=== PATIENT | male | born 1980 | race Caucasian/White ===

== ENCOUNTER 2018-09-23 00:05 | Emergency (ER) | payer OTHER ==
[2018-09-23 01:05] LABS: Protime INR 1.06
[2018-09-23 01:06] LABS: ALT/SGPT 36 U/L (12-78); AST/SGOT 19 U/L (15-37); Albumin 4.2 g/dL (3.4-5.0); Alkaline Phosphatase 101 U/L (45-117); BUN Blood Urea Nitrogen 12 mg/dL (7-18); Bicarbonate 29 mmol/L (21-32); Bilirubin Direct 0.1 mg/dL (0-0.2); Bilirubin Total 0.4 mg/dL (0.2-1.0); Glucose Level 109 mg/dL (74-106); Magnesium 2.1 mg/dL (1.8-2.4); NT PRO-BNP 17 pg/mL (<125); Potassium 3.4 mmol/L (3.5-5.1); Protein, Total 7.3 g/dL (6.4-8.2); Sodium Level 142 mmol/L (136-145); Troponin (Emerg Dept Use Only) < 0.02 ng/mL (0.0-0.045)
[2018-09-23] MEDS ORDERED: KETOROLAC 30 MG/ML INJ ONE (03:03)
--- NOTE | 2018-09-23 03:56 | ER ---
Nurse's Notes [facility] Name: Gabe Steiner Age: 37 yrs Sex: Male : 1980 Arrival Date: 09/23/2018 Time: 00:09 Bed 5 Private MD: Diagnosis: Chest pain, unspecified Presentation: 09/23 00:20 Presenting complaint: Patient states: Sudden onset of right anterior chest pain that lp1 began 2 hours ago, dull pain with some sweating; denies any shortness of breath; States feeling anxious during triage. Transition of care: patient was not received from another setting of care. Onset of symptoms was September 22, 2018 at 22:00. Risk Assessment: Do you want to hurt yourself or someone else? Patient reports no desire to harm self or others. Initial Sepsis Screen: Does the patient meet any 2 criteria? No. Patient's initial sepsis screen is negative. Does the patient have a suspected source of infection? No. Patient's initial sepsis screen is negative. Care prior to arrival: None. 00:20 Method Of Arrival: Wheelchair lp1 00:20 Acuity: FUENTES 3 lp1 Triage Assessment: 00:24 General: Appears in no apparent distress. Behavior is appropriate for age. Pain: lp1 Complains of pain in anterior aspect of right upper chest Pain currently is 4 out of 10 on a pain scale. Cardiovascular: Patient's skin is warm and dry. Historical: - Allergies: 00:23 No Known Allergies; lp1 - Home Meds: 00:23 None [Active]; lp1 - PMHx: 00:23 Heart Murmur; lp1 - PSHx: 00:23 None; lp1 - Immunization history:: Adult Immunizations up to date. - Social history:: Smoking status: Patient/guardian denies using tobacco. - Ebola Screening: : No symptoms or risks identified at this time. Screenin:23 Abuse screen: Denies threats or abuse. Denies injuries from another. Nutritional lp1 screening: No deficits noted. Tuberculosis screening: No symptoms or risk factors identified. Fall Risk None identified. Assessment: 00:37 General: Appears in no apparent distress. Behavior is calm, cooperative. Pain: Denies ed1 pain. Neuro: Level of Consciousness is awake, alert, obeys commands, Oriented to person, place, time, situation. Cardiovascular: Reports chest pain prior to arrival Denies chest pain, Heart tones S1 S2 present Capillary refill < 3 seconds in bilateral fingers. Respiratory: Airway is patent Respiratory effort is even, unlabored, Respiratory pattern is regular, symmetrical, Breath sounds are clear bilaterally. GI: Patient currently denies diarrhea, nausea, vomiting. : No signs and/or symptoms were reported regarding the genitourinary system. EENT: No signs and/or symptoms were reported regarding the EENT system. Derm: Skin is intact, is healthy with good turgor, Skin is dry, Skin is normal, Skin temperature is warm. Musculoskeletal: Circulation, motion, and sensation intact. 00:56 Reassessment: Patient appears in no apparent distress at this time. Patient and/or ed1 family updated on plan of care and expected duration. Pain level reassessed. Patient is alert, oriented x 3, equal unlabored respirations, skin warm/dry/pink. Patient denies pain at this time. 01:30 Reassessment: Patient appears in no apparent distress at this time. Patient and/or ed1 family updated on plan of care and expected duration. Pain level reassessed. Patient is alert, oriented x 3, equal unlabored respirations, skin warm/dry/pink. Patient denies pain at this time. 02:27 Reassessment: Patient appears in no apparent distress at this time. Patient and/or ed1 family updated on plan of care and expected duration. Pain level reassessed. Patient is alert, oriented x 3, equal unlabored respirations, skin warm/dry/pink. Pt states "I had felt the pain about 45 minutes ago but it is gone now." Patient denies pain at this time. 03:26 Reassessment: Patient appears in no apparent distress at this time. Patient and/or ed1 family updated on plan of care and expected duration. Pain level reassessed. Patient is alert, oriented x 3, equal unlabored respirations, skin warm/dry/pink. Pt states "I can't really tell if that medicine worked or not because the pain just comes and goes.". 04:06 Reassessment: Patient appears in no apparent distress at this time. No changes from ed1 previously documented assessment. Patient and/or family updated on plan of care and expected duration. Pain level reassessed. Patient is alert, oriented x 3, equal unlabored respirations, skin warm/dry/pink. Vital Signs: 00:22 BP 165 / 99; Pulse 71; Resp 18; Temp 97.8(O); Pulse Ox 99% on R/A; Weight 115.67 kg; lp1 Height 6 ft. 4 in. (193.04 cm); Pain 4/10; 00:56 BP 151 / 100; Pulse 69; Resp 14; Pulse Ox 99% on R/A; Pain 0/10; ed1 01:30 BP 134 / 92; Pulse 64; Resp 18; Pulse Ox 98% on R/A; Pain 0/10; ed1 02:27 BP 135 / 98; Pulse 69; Resp 15; Pulse Ox 97% on R/A; Pain 0/10; ed1 03:26 BP 128 / 86; Pulse 66; Resp 15; Pulse Ox 98% on R/A; Pain 2/10; ed1 04:06 BP 130 / 99; Pulse 71; Resp 17; Pulse Ox 100% on R/A; Pain 0/10; ed1 00:22 Body Mass Index 31.04 (115.67 kg, 193.04 cm) lp1 ED Course: 00:09 Patient arrived in ED. ds1 00:12 Paul Alvarez MD is Attending Physician. gs 00:22 Triage completed. lp1 00:22 Arm band placed on left wrist. lp1 00:23 Patient has correct armband on for positive identification. Placed in gown. Call light lp1 in reach. compliance monitor on. Pulse ox on. NIBP on. 00:24 Patient maintains SpO2 saturation greater than 95% on room air. lp1 00:25 Kristin Dinero RN is Primary Nurse. ed1 00:37 Initial lab(s) drawn, by me, sent to lab. Inserted saline lock: 20 gauge in right ed1 antecubital area, using aseptic technique. Blood collected. 00:40 X-ray completed. Portable x-ray completed in exam room. Patient tolerated procedure kw well. 00:41 XRAY Chest (1 view) In Process Unspecified. EDMS 04:06 No provider procedures requiring assistance completed. IV discontinued, intact, ed1 bleeding controlled, No redness/swelling at site. Pressure dressing applied. Administered Medications: 02:55 Drug: TORadol 30 mg Route: IVP; Site: right antecubital; ed1 03:28 Follow up: Response: No adverse reaction; No change in condition ed1 Outcome: 03:55 Discharge ordered by . 04:06 Discharged to home ambulatory, with significant other. ed1 04:06 Condition: good 04:06 Discharge instructions given to patient, Instructed on discharge instructions, follow up and referral plans. Demonstrated understanding of instructions, follow-up care. 04:07 Patient left the ED. ed1 Signatures: Dispatcher [employer] EDMS Brianna Damian ds1 Kristin Dinero RN RN ed1 Aleah Kearney Laura, SHEN RN lp1 Paul Alvarez MD MD gs
--- NOTE | 2018-09-23 03:56 | EDPHYS ---
Physician Documentation [facility] Name: Gabe Steiner Age: 37 yrs Sex: Male : 1980 Arrival Date: 09/23/2018 Time: 00:09 Bed 5 Private MD: ED Physician Paul Alvarez HPI: 09/23 03:48 This 37 yrs old Male presents to ER via Wheelchair with complaints of Chest gs Pain. 03:48 The patient or guardian reports chest pain that is located primarily in the anterior gs chest wall, right. The pain does not radiate. Associated signs and symptoms: Pertinent positives: diaphoresis, shortness of breath. The chest pain is described as dull. Duration: The patient or guardian reports multiple episodes, that wax and wane, with no pattern, the episodes last approximately 5 minute(s). Modifying factors: The symptoms are alleviated by nothing. the symptoms are aggravated by movement. Severity of pain: At its worst the pain was moderate in the emergency department the pain has resolved. The patient has experienced similar episodes in the past, a few times. Historical: - Allergies: 00:23 No Known Allergies; lp1 - Home Meds: 00:23 None [Active]; lp1 - PMHx: 00:23 Heart Murmur; lp1 - PSHx: 00:23 None; lp1 - Immunization history:: Adult Immunizations up to date. - Social history:: Smoking status: Patient/guardian denies using tobacco. - Ebola Screening: : No symptoms or risks identified at this time. ROS: 03:48 All other systems are negative. gs Exam: 03:48 Head/Face: Normocephalic, atraumatic. Eyes: Pupils equal round and reactive to light, gs extra-ocular motions intact. Lids and lashes normal. Conjunctiva and sclera are non-icteric and not injected. Cornea within normal limits. Periorbital areas with no swelling, redness, or edema. ENT: Nares patent. No nasal discharge, no septal abnormalities noted. Tympanic membranes are normal and external auditory canals are clear. Oropharynx with no redness, swelling, or masses, exudates, or evidence of obstruction, uvula midline. Mucous membranes moist. Neck: Trachea midline, no thyromegaly or masses palpated, and no cervical lymphadenopathy. Supple, full range of motion without nuchal rigidity, or vertebral point tenderness. No Meningismus. Chest/axilla: Normal chest wall appearance and motion. Nontender with no deformity. No lesions are appreciated. Cardiovascular: Regular rate and rhythm with a normal S1 and S2. No gallops, murmurs, or rubs. Normal PMI, no JVD. No pulse deficits. Respiratory: Lungs have equal breath sounds bilaterally, clear to auscultation and percussion. No rales, rhonchi or wheezes noted. No increased work of breathing, no retractions or nasal flaring. Abdomen/GI: Soft, non-tender, with normal bowel sounds. No distension or tympany. No guarding or rebound. No evidence of tenderness throughout. Back: No spinal tenderness. No costovertebral tenderness. Full range of motion. Skin: Warm, dry with normal turgor. Normal color with no rashes, no lesions, and no evidence of cellulitis. MS/ Extremity: Pulses equal, no cyanosis. Neurovascular intact. Full, normal range of motion. Neuro: Awake and alert, GCS 15, oriented to person, place, time, and situation. Cranial nerves II-XII grossly intact. Motor strength 5/5 in all extremities. Sensory grossly intact. Cerebellar exam normal. Normal gait. 03:48 Constitutional: The patient appears alert, awake. 03:48 ECG was reviewed by the Attending Physician. Vital Signs: 00:22 BP 165 / 99; Pulse 71; Resp 18; Temp 97.8(O); Pulse Ox 99% on R/A; Weight 115.67 kg; lp1 Height 6 ft. 4 in. (193.04 cm); Pain 4/10; 00:56 BP 151 / 100; Pulse 69; Resp 14; Pulse Ox 99% on R/A; Pain 0/10; ed1 01:30 BP 134 / 92; Pulse 64; Resp 18; Pulse Ox 98% on R/A; Pain 0/10; ed1 02:27 BP 135 / 98; Pulse 69; Resp 15; Pulse Ox 97% on R/A; Pain 0/10; ed1 03:26 BP 128 / 86; Pulse 66; Resp 15; Pulse Ox 98% on R/A; Pain 2/10; ed1 04:06 BP 130 / 99; Pulse 71; Resp 17; Pulse Ox 100% on R/A; Pain 0/10; ed1 00:22 Body Mass Index 31.04 (115.67 kg, 193.04 cm) lp1 MDM: 00:23 Patient medically screened. 03:48 Differential diagnosis: coronary artery disease chest wall pain, thoracic aortic gs disection. Data reviewed: vital signs, nurses notes, lab test result(s), EKG, radiologic studies. Counseling: I had a detailed discussion with the patient and/or guardian regarding: the historical points, exam findings, and any diagnostic results supporting the discharge/admit diagnosis, lab results, radiology results, the need for outpatient follow up. Response to treatment: the patient's symptoms have resolved after treatment, and as a result, I will discharge patient. 09/23 00:24 Order name: Basic Metabolic Panel; Complete Time: 02:05 09/23 00:24 Order name: CBC with Diff; Complete Time: 03:48 09/23 00:24 Order name: LFT's; Complete Time: 02:05 09/23 00:24 Order name: Magnesium; Complete Time: 02:05 09/23 00:24 Order name: NT PRO-BNP; Complete Time: 02:05 09/23 00:24 Order name: PT-INR; Complete Time: 02:05 09/23 00:24 Order name: Troponin (emerg Dept Use Only); Complete Time: 02:05 09/23 00:24 Order name: XRAY Chest (1 view) 09/23 00:24 Order name: EKG; Complete Time: 00:25 09/23 00:24 Order name: Cardiac monitoring; Complete Time: 00:25 09/23 00:24 Order name: EKG - Nurse/Tech; Complete Time: 00:56 09/23 00:24 Order name: D-Dimer; Complete Time: 02:05 09/23 02:06 Order name: Troponin (emerg Dept Use Only); Complete Time: 03:48 09/23 00:24 Order name: IV Saline Lock; Complete Time: 00:40 09/23 00:24 Order name: Labs collected and sent; Complete Time: 00:40 09/23 00:24 Order name: O2 Per Protocol; Complete Time: 00:26 09/23 00:24 Order name: O2 Sat Monitoring; Complete Time: 00:26 gs EC:48 Rate is 67 beats/min. Rhythm is regular. FL interval is normal. QRS interval is normal. gs QT interval is normal. No Q waves. T waves are Normal. No ST changes noted. Clinical impression: Normal ECG. Interpreted by me. Administered Medications: 02:55 Drug: TORadol 30 mg Route: IVP; Site: right antecubital; ed1 03:28 Follow up: Response: No adverse reaction; No change in condition ed1 Disposition: 09/23/18 03:55 Discharged to Home. Impression: Chest pain, unspecified. - Condition is Stable. - Discharge Instructions: Nonspecific Chest Pain. - Medication Reconciliation Form, Thank You Letter, Antibiotic Education, Prescription Opioid Use form. - Follow up: Private Physician; When: 2 - 3 days; Reason: Re-evaluation by your physician. Signatures: Dispatcher [employer] Kristin Owens RN RN ed1 Vivian Glover RN RN lp1 Paul Alvarez MD MD Corrections: (The following items were deleted from the chart) 04:07 03:55 09/23/2018 03:55 Discharged to Home. Impression: Chest pain, unspecified. ed1 Condition is Stable. Forms are Medication Reconciliation Form, Thank You Letter, Antibiotic Education, Prescription Opioid Use. Follow up: Private Physician; When: 2 - 3 days; Reason: Re-evaluation by your physician.
--- NOTE | 2018-09-23 08:26 | RAD REPORT ---
EXAM DESCRIPTION: RAD - Chest Single View - 09/23/2018 12:41 am CLINICAL HISTORY: CHEST PAIN Chest pain. COMPARISON: No comparisons FINDINGS: Portable technique limits examination quality. The lungs are grossly clear. The heart is normal in size. No displaced fractures. IMPRESSION: No acute intrathoracic process suspected.
--- NOTE | 2018-09-23 14:01 | EKG ---
Test Date: 2018-09-23 Test Time: 00:39:54 Glass Technician: WOLFT MEASUREMENT RESULTS: Intervals: Rate: 67 VA: 168 QRSD: 96 QT: 420 QTc: 443 Paulina: P: 68 VA: 168 QRS: 53 T: 54 INTERPRETIVE STATEMENTS: Normal sinus rhythm Normal ECG No previous ECG available for comparison Electronically Signed On 09-23-18 13:58:51 PAINT AND TABLE EDGER by Tarun Baker
== END 2018-09-23 04:07 | disposition home or self-care (01) ==
LOC: ER 00:05
DX: R07.9 Chest pain, unspecified (principal)
CPT/HCPCS: 36415; 71045; 80048; 80076; 83735; 83880; 84484; 85025; 85379; 85610; 93005

== ENCOUNTER 2018-10-10 07:27 | Day surgery (SDC) | payer OTHER ==
[2018-10-07 14:33] LABS: Potassium 4.2 mmol/L (3.5-5.1)
[2018-10-07 14:42] LABS: Absolute Monocytes 0.3 K/uL (0.1-1.3); Absolute Neutrophil 3.4 K/uL (1.8-8.0); Basophils % 0.2 % (0-1.3); Eosinophils % 0.9 % (0-4.4); Hematocrit 41.3 % (39.6-49.0); Lymphocytes % 20.9 % (15.3-44.8); MPV 11.2 fL (7.6-11.3); Monocytes % 5.8 % (3.3-12.3); RBC Red Blood Cell Count 4.83 M/uL (4.33-5.43)
[2018-10-10] MEDS ORDERED: CEFAZOLIN 1GM (PREMIX IV) 1 GM/50 ML BAG ONE (08:00)
[2018-10-10] MEDS ORDERED: Ringers Lactate 1,000 ML IV ONE (08:00)
[2018-10-10] MEDS ORDERED: PROPOFOL 200 MG/20 ML VIAL IV ONE (08:07)
[2018-10-10] MEDS ORDERED: MIDAZOLAM HCL 2 MG/2 ML INJ ONE (08:07)
[2018-10-10] MEDS ORDERED: FENTANYL CITR 100 MCG/2 ML ONE (08:07)
[2018-10-10] MEDS ORDERED: ONDANSETRON 4 MG/2 ML VIAL ONE (08:08)
[2018-10-10] MEDS ORDERED: LIDOCAINE 2% MPF 5 ML VIAL ONE (08:08)
[2018-10-10] MEDS ORDERED: BUPIVACAINE 0.5% PF 10 ML VIAL ONE (08:22)
--- NOTE | 2018-10-10 08:55 | P.BOP ---
Preoperative diagnosis: infected back subcutaneous mass with abscess Postoperative diagnosis: same Primary procedure: Excisional biopsy of infected back subcutaneous mass with abscess drainage Secondary procedure: 4.5 x 4 x 2 cm Supervisor Porcelain Department: Geno Maldonado) Estimated blood loss: <10cc Specimen: mass, pus culture Findings: mass with abscess Anesthesia: General Complications: None Drain(s): Other Transferred to: Recovery Room
[2018-10-10] MEDS ORDERED: CODEINE 30MG/APAP 300MG TAB ONE (10:27)
--- NOTE | 2018-10-10 20:58 | OP ---
Date of Procedure: 10/10/2018 Surgeon: David Nix MD Shovel Logger: ZIA Mahajan. Preoperative Diagnosis: Infected back subcutaneous mass with abscess. Postoperative Diagnosis: Infected back subcutaneous mass with abscess. Procedure: Excisional biopsy of infected back subcutaneous mass with drainage of an abscess, 4.5 x 4 x 2 cm. Estimated Blood Loss: Less than 10 cc. Specimen: Mass and pus culture. Findings: The patient has an infected mass, foul smelling, going all the way down to muscle, some fa scia also was involved with it. The muscle does not seem to be penetrated. The fascia was removed w ith the specimen. Culture was obtained. The abscess with loculations were identified and opened. Anesthesia: General plus local. Indications: This is the case of a 37-year-old patient, comes to us with infected back mass, redness , increased temperature. He has been on antibiotics for a few days, but it is not improving. Benefi ts and risks of excisional biopsy of infected mass with drainage of an abscess fully explained to the patient, which include but are not limited to infection, bleeding, damage to adjacent structures, an esthesia complication, nonhealing wound, UT, and even . He also understands this might not reli mitzi any symptoms. He might need more than one surgical intervention. He understands he may require wound care. He understood, signed a consent. The area of concern was marked by me and the patient i n the holding room. Description Of Procedure: The patient was brought to the operating room, placed in supine position. Anesthesia was done without complication. The patient was placed in lateral decubitus position with proper protection. The back area was prepped and draped in a sterile fashion. The patient was rais ed given some purulent discharge. We proceeded to make an incision away from the area of the mass it self to be able to remove it completely. A circumferential incision was made all the way down until we had no mass. This mass looked like it was attached to the fascia, some fascia of the muscle need to come with the specimen. The muscle seems to be not penetrated by it. The mass was excised. Some loculations were explored. After we removed the mass, there was an abscess deep to that area with l oculations along the fatty plane, so we went to them, irrigated them, cultured that obtaining hemosta sis. After that, the area was packed with wet-to-dry dressing after injecting local anesthetic. The patient tolerated the procedure well. The patient was sent to recovery in stable condition. Disposition: Home. Activity: As tolerated. No heavy lifting. Followup: Follow up in my office in one week. Call for appointment [phone]. Keep the area dry for 24 hours then may shower and a wet-to-dry dressing, normal saline daily. Medications: Include Tylenol No. 3 q.4 hours p.r.n. pain. Normal saline. MARSHA/MADDY Voice ID: [id number] Report ID: [id number]
== END 2018-10-10 11:18 | disposition home or self-care (01) ==
LOC: OR 07:27
PROVIDERS: ATTEND Surgery
PROC: 0JB70ZZ Excision of Back Subcutaneous Tissue and Fascia, Open Approach (ICD-10-PCS; principal; 2018-10-10 08:30)
DX: L72.0 Epidermal cyst (principal); L03.312 Cellulitis of back [any part except buttock and flank]; L02.212 Cutaneous abscess of back [any part, except buttock and flank]
CPT/HCPCS: 36415; 80048; 85025; 87070; 87075; 87205; 88304; J0690; J2250; J2405; J2704; J3010

== ENCOUNTER 2020-11-20 20:45 | Emergency (ER) | payer OTHER ==
--- OUTSIDE RECORDS SUMMARY | 2020-11-20 20:47 | XMS REPORT | Continuity of Care Document ---
:1980 Author Organization [facility] t Address [address] [place] [place] [address] Care Team Providers Name Role Phone Colton Tobias Attending Clinician Problems This patient has no known problems. Allergies, Adverse Reactions, Alerts This patient has no known allergies or adverse reactions. Medications This patient has no known medications. Procedures This patient has no known procedures. Encounters Start End Encounter Admission Attending Care Care Encounter Source Date/Time Date/Time Type Type Clinicians Facility Department ID 2019-11-15 2019-11-15 Urgent Quintin [facility] [id number] 21:20:23 22:30:31 Care [facility] [id number] [facility] [id number] [facility] [id number] [address] [facility] Results This patient has no known results.
[2020-11-21] MEDS ORDERED: ONDANSETRON 4 MG/2 ML VIAL ONE (01:24)
[2020-11-21] MEDS ORDERED: NA CHLORIDE 0.9% 1,000 ML ONE (01:24)
[2020-11-21 01:27] LABS: Absolute Lymphocytes (CBC) 1.3 K/uL (0.7-4.9); Basophils % 0.3 % (0-1.3); Hematocrit 40.1 % (39.6-49.0); Lymphocytes % 24.4 % (15.3-44.8); MPV 11.2 fL (7.6-11.3); RBC Red Blood Cell Count 4.72 M/uL (4.33-5.43)
[2020-11-21 01:47] LABS: ALT/SGPT 45 U/L (12-78); AST/SGOT 21 U/L (15-37); Albumin 4.8 g/dL (3.4-5.0); BUN Blood Urea Nitrogen 8 mg/dL (7-18); Bicarbonate 30 mmol/L (21-32); Bilirubin Direct 0.2 mg/dL (0-0.2); Bilirubin Total 0.8 mg/dL (0.2-1.0); Glucose Level 90 mg/dL (74-106); Lipase 108 U/L (73-393); Potassium 3.3 mmol/L (3.5-5.1); Protein, Total 8.2 g/dL (6.4-8.2); Sodium Level 141 mmol/L (136-145)
[2020-11-21 01:48] LABS: Alkaline Phosphatase ND U/L (45-117)
[2020-11-21 02:06] LABS: Urine Blood TRACE (NEG); Urine Glucose NEGATIVE (NEG); Urine Protein NEGATIVE (NEG)
--- NOTE | 2020-11-21 02:54 | ER ---
Nurse's Notes [facility] Name: Gabe Steiner Age: 39 yrs Sex: Male : 1980 Arrival Date: 11/20/2020 Time: 20:48 Bed 6 Private MD: Diagnosis: Abdominal tenderness Presentation: 11/20 21:16 Chief complaint: Patient states: Abdominal cramping for 3 days. Got worse and more ll1 painful today. + bloating. No N/V/D. Urinary frequency noted, by dysuria. Coronavirus screen: Client denies travel out of the [place] in the last 14 days. At this time, the client does not indicate any symptoms associated with coronavirus-19. Ebola Screen: Patient denies travel to an Ebola-affected area in the 21 days before illness onset. Initial Sepsis Screen: Does the patient meet any 2 criteria? No. Patient's initial sepsis screen is negative. Does the patient have a suspected source of infection? Yes: Acute abdominal pain. Risk Assessment: Do you want to hurt yourself or someone else? Patient reports no desire to harm self or others. Onset of symptoms was November 18, 2020. 21:16 Method Of Arrival: Ambulatory ll1 21:16 Acuity: FUENTES 3 ll1 Historical: - Allergies: 21:19 No Known Allergies; ll1 - PMHx: 21:19 Heart Murmur; Hypertension; High Cholesterol; no meds; ll1 - PSHx: 21:19 cyst removed from shoulder area; ll1 - Immunization history:: Flu vaccine is up to date. - Social history:: Smoking status: Patient denies any tobacco usage or history of. - Family history:: not pertinent. Screenin/18 01:53 Abuse screen: Denies threats or abuse. Denies injuries from another. Nutritional wh screening: No deficits noted. Tuberculosis screening: No symptoms or risk factors identified. Fall Risk None identified. Assessment: 00:30 General: Appears in no apparent distress. Behavior is calm, cooperative, appropriate wh for age. Pain: Denies pain. Neuro: Level of Consciousness is awake, alert, obeys commands, Oriented to person, place, time, situation, Appropriate for age. Cardiovascular: Heart tones S1 S2. Respiratory: Airway is patent Respiratory effort is even, unlabored, Respiratory pattern is regular, symmetrical, Breath sounds are clear bilaterally. GI: Abdomen is flat, non-distended, Bowel sounds present X 4 quads. Abd is soft and non tender X 4 quads. Reports cramping. GI: Reports nausea. : No signs and/or symptoms were reported regarding the genitourinary system. EENT: No signs and/or symptoms were reported regarding the EENT system. Derm: Skin is intact, is healthy with good turgor, Skin is pink, warm \T\ dry. normal. Musculoskeletal: Circulation, motion, and sensation intact. 01:53 Reassessment: Patient appears in no apparent distress at this time. No changes from previously documented assessment. Patient and/or family updated on plan of care and expected duration. Pain level reassessed. Patient is alert, oriented x 3, equal unlabored respirations, skin warm/dry/pink. 03:00 Reassessment: Patient appears in no apparent distress at this time. Patient and/or family updated on plan of care and expected duration. Pain level reassessed. Patient is alert, oriented x 3, equal unlabored respirations, skin warm/dry/pink. Vital Signs: 11/20 21:16 BP 159 / 108; Pulse 82; Resp 17; Temp 98.8; Pulse Ox 98% on R/A; Weight 113.4 kg; ll1 Height 6 ft. 4 in. (193.04 cm); Pain 3/10; 18 01:51 BP 140 / 91; Pulse 77; Resp 18; Pulse Ox 98% on R/A; 03:00 BP 133 / 86; Pulse 73; Resp 18; Pulse Ox 98% on R/A; 11/20 21:16 Body Mass Index 30.43 (113.40 kg, 193.04 cm) 1 ED Course: 11/20 20:48 Patient arrived in ED. cf2 21:18 Triage completed. ll1 21:19 Arm band placed on. 1 11/21 00:25 Marianna Pa, SHEN is Primary Nurse. 00:35 Mark Anthony Melgar MD is Attending Physician. [facility] 01:12 Inserted saline lock: 20 gauge in right antecubital area, using aseptic technique. oe Blood collected. 01:53 Patient has correct armband on for positive identification. Bed in low position. Call light in reach. Side rails up X 1. Pulse ox on. NIBP on. 02:30 CT Abd/Pelvis - IV Contrast Only In Process Unspecified. EDMS 03:05 No provider procedures requiring assistance completed. IV discontinued, intact, bleeding controlled, No redness/swelling at site. Administered Medications: 01:14 Drug: NS 0.9% 1000 ml Route: IV; Rate: 1 bolus; Site: right antecubital; 03:06 Follow up: Response: No adverse reaction; IV Status: Completed infusion 01:16 Drug: Zofran (Ondansetron) 4 mg Route: IVP; Site: right antecubital; 03:05 Follow up: Response: No adverse reaction; Nausea is decreased Outcome: 02:54 Discharge ordered by . bony 03:05 Discharged to home ambulatory. 03:05 Condition: stable 03:05 Discharge instructions given to patient, Instructed on discharge instructions, follow up and referral plans. medication usage, POC Demonstrated understanding of instructions, follow-up care, medications, POC Prescriptions given X 1. 03:07 Patient left the ED. Signatures: Dispatcher [employer] EDMS Mark Anthony Melgar MD MD cha Espinosa, Orlando oe Habalo, Winsy, RN RN Sunil Correa cf2 Rajesh Moran RN RN ll1
--- NOTE | 2020-11-21 02:54 | EDPHYS ---
Physician Documentation [facility] Name: Gaeb Steiner Age: 39 yrs Sex: Male : 1980 Arrival Date: 11/20/2020 Time: 20:48 Bed 6 Private MD: ED Physician Mark Anthony Melgar HPI: 11/21 00:51 This 39 yrs old Male presents to ER via Ambulatory with complaints of bony Abdominal Pain. 00:51 The patient presents with abdominal pain right lower quadrant. Onset: The bony symptoms/episode began/occurred 1 day(s) ago. The symptoms do not radiate. Associated signs and symptoms: none. The symptoms are described as constant. Modifying factors: The symptoms are alleviated by nothing, the symptoms are aggravated by nothing. Severity of pain: At its worst the pain was moderate in the emergency department the pain is unchanged. The patient has not experienced similar symptoms in the past. Historical: - Allergies: 11/20 21:19 No Known Allergies; ll1 - PMHx: 21:19 Heart Murmur; Hypertension; High Cholesterol; no meds; ll1 - PSHx: 21:19 cyst removed from shoulder area; ll1 - Immunization history:: Flu vaccine is up to date. - Social history:: Smoking status: Patient denies any tobacco usage or history of. - Family history:: not pertinent. ROS: 11/21 00:51 Constitutional: Negative for fever, chills, and weight loss, Eyes: Negative for injury, bony pain, redness, and discharge, ENT: Negative for injury, pain, and discharge, Neck: Negative for injury, pain, and swelling, Cardiovascular: Negative for chest pain, palpitations, and edema, Respiratory: Negative for shortness of breath, cough, wheezing, and pleuritic chest pain, Back: Negative for injury and pain, : Negative for injury, bleeding, discharge, and swelling, MS/Extremity: Negative for injury and deformity, Skin: Negative for injury, rash, and discoloration, Neuro: Negative for headache, weakness, numbness, tingling, and seizure, Psych: Negative for depression, anxiety, suicide ideation, homicidal ideation, and hallucinations, Allergy/Immunology: Negative for hives, rash, and allergies, Endocrine: Negative for neck swelling, polydipsia, polyuria, polyphagia, and marked weight changes, Hematologic/Lymphatic: Negative for swollen nodes, abnormal bleeding, and unusual bruising. Abdomen/GI: Positive for abdominal pain, nausea and vomiting, of the right lower quadrant. Exam: 00:51 Constitutional: This is a well developed, well nourished patient who is awake, alert, bony and in no acute distress. Head/Face: Normocephalic, atraumatic. Eyes: Pupils equal round and reactive to light, extra-ocular motions intact. Lids and lashes normal. Conjunctiva and sclera are non-icteric and not injected. Cornea within normal limits. Periorbital areas with no swelling, redness, or edema. ENT: Nares patent. No nasal discharge, no septal abnormalities noted. Tympanic membranes are normal and external auditory canals are clear. Oropharynx with no redness, swelling, or masses, exudates, or evidence of obstruction, uvula midline. Mucous membranes moist. Neck: Trachea midline, no thyromegaly or masses palpated, and no cervical lymphadenopathy. Supple, full range of motion without nuchal rigidity, or vertebral point tenderness. No Meningismus. Chest/axilla: Normal chest wall appearance and motion. Nontender with no deformity. No lesions are appreciated. Cardiovascular: Regular rate and rhythm with a normal S1 and S2. No gallops, murmurs, or rubs. Normal PMI, no JVD. No pulse deficits. Respiratory: Lungs have equal breath sounds bilaterally, clear to auscultation and percussion. No rales, rhonchi or wheezes noted. No increased work of breathing, no retractions or nasal flaring. Abdomen/GI: Soft, non-tender, with normal bowel sounds. No distension or tympany. No guarding or rebound. No evidence of tenderness throughout. Back: No spinal tenderness. No costovertebral tenderness. Full range of motion. Skin: Warm, dry with normal turgor. Normal color with no rashes, no lesions, and no evidence of cellulitis. MS/ Extremity: Pulses equal, no cyanosis. Neurovascular intact. Full, normal range of motion. Neuro: Awake and alert, GCS 15, oriented to person, place, time, and situation. Cranial nerves II-XII grossly intact. Motor strength 5/5 in all extremities. Sensory grossly intact. Cerebellar exam normal. Normal gait. Psych: Awake, alert, with orientation to person, place and time. Behavior, mood, and affect are within normal limits. 00:51 : CVA tenderness, is absent, Male external genitalia: normal, Bladder: is normal, non-distended, non-tender. Vital Signs: 11/20 21:16 BP 159 / 108; Pulse 82; Resp 17; Temp 98.8; Pulse Ox 98% on R/A; Weight 113.4 kg; ll1 Height 6 ft. 4 in. (193.04 cm); Pain 3/10; 11/21 01:51 BP 140 / 91; Pulse 77; Resp 18; Pulse Ox 98% on R/A; wh 03:00 BP 133 / 86; Pulse 73; Resp 18; Pulse Ox 98% on R/A; 11/20 21:16 Body Mass Index 30.43 (113.40 kg, 193.04 cm) ll1 MDM: 00:35 Patient medically screened. bony 00:56 Differential diagnosis: appendicitis, bowel obstruction, cholecystitis, Cholelithiasis, bony diverticulitis, gastritis, non-specific abd pain, Peptic Ulcer Disease, Pyelonephritis, urinary tract infection. Data reviewed: vital signs, nurses notes, lab test result(s), EKG, radiologic studies, CT scan. Data interpreted: personnel monitor: rate is 82 beats/min, rhythm is regular, Pulse oximetry: on room air is 98 %. Test interpretation: by ED physician or midlevel provider: ECG, plain radiologic studies. Counseling: I had a detailed discussion with the patient and/or guardian regarding: the historical points, exam findings, and any diagnostic results supporting the discharge/admit diagnosis, lab results, radiology results. 11/21 00:50 Order name: Basic Metabolic Panel; Complete Time: 02:41 [facility] 11/21 00:50 Order name: CBC with Diff; Complete Time: 01:45 [facility] 11/21 00:50 Order name: Hepatic Function; Complete Time: 02:41 [facility] 11/21 00:50 Order name: Lipase; Complete Time: 02:41 [facility] 11/21 00:50 Order name: CT Abd/Pelvis - IV Contrast Only [facility] 11/21 01:01 Order name: Urine Dipstick--Ancillary (enter results); Complete Time: 02:41 [facility] 11/21 00:34 Order name: Urine Dipstick-Ancillary (obtain specimen); Complete Time: 01:15 11/21 00:50 Order name: IV Saline Lock; Complete Time: 16 [facility] 11/21 00:50 Order name: Labs collected and sent; Complete Time: [facility] Administered Medications: 01:14 Drug: NS 0.9% 1000 ml Route: IV; Rate: 1 bolus; Site: right antecubital; 03:06 Follow up: Response: No adverse reaction; IV Status: Completed infusion 01:16 Drug: Zofran (Ondansetron) 4 mg Route: IVP; Site: right antecubital; 03:05 Follow up: Response: No adverse reaction; Nausea is decreased Disposition: 11/21/20 02:54 Discharged to Home. Impression: Abdominal tenderness. - Condition is Stable. - Discharge Instructions: Abdominal Pain, Adult, High-Fiber Diet, Abdominal Pain, Adult, [id number]. - Prescriptions for Bentyl 20 mg Oral Tablet - take 1 tablet by ORAL route every 6 hours As needed; 20 tablet. - Medication Reconciliation Form, Thank You Letter, Antibiotic Education, Prescription Opioid Use form. - Follow up: Private Physician; When: 2 - 3 days; Reason: Recheck today's complaints, Re-evaluation by your physician. - Problem is new. - Symptoms have improved. Signatures: Dispatcher [employer] EDMS Mark Anthony Melgar MD MD cha Habalo, Winsy RN RN Rajesh Moran RN RN ll1 Corrections: (The following items were deleted from the chart) 03:07 02:54 11/21/2020 02:54 Discharged to Home. Impression: Abdominal tenderness. Condition is Stable. Forms are Medication Reconciliation Form, Thank You Letter, Antibiotic Education, Prescription Opioid Use. Follow up: Private Physician; When: 2 - 3 days; Reason: Recheck today's complaints, Re-evaluation by your physician. Problem is new. Symptoms have improved. bony
[2020-11-21 03:14] VITALS: TEMP 98.8; O2SAT 98
[2020-11-21 03:17] VITALS: BP 133/86
--- NOTE | 2020-11-21 10:03 | RAD REPORT ---
EXAM DESCRIPTION: CT Abdomen and Pelvis COMPARISON: None. CLINICAL HISTORY: [facility] MAIN ABD PAIN TECHNIQUE: CT of the abdomen and pelvis was acquired with IV contrast material. Coronal and sagitt al reconstructions were obtained. Automated exposure control was utilized on this examination as a dose lowering technique. FINDINGS: Lung bases: Clear. Liver: Normal. Gallbladder and biliary: Normal gallbladder. Unremarkable biliary tree. Pancreas: Normal. Spleen: Normal. Adrenal glands: Normal adrenal glands. Kidneys: Normal kidneys Stomach and Small Bowel: The stomach and small bowel are normal. Urinary bladder: Normal. Prostate/Male Urogenital: Normal. Colon and Appendix: The colon is unremarkable. No evidence of appendicitis. Retroperitoneum and lymph nodes: Normal. Vascular: Normal. Peritoneal cavity: No ascites or free air. Musculoskeletal and soft tissues: Soft tissues are unremarkable. No aggressive bone lesions. No com pression fracture. IMPRESSION: No acute intra-abdominal abnormality. Electronically signed by: Zach Galloway MD 11/21/2020 2:40 AM CDT Due to temporary technical issues with the PACS/Fluency reporting system, reports are being signed by the in house radiologist without review as a courtesy to ensure prompt reporting. The interpreting r adiologist is fully responsible for the content of the report.
== END 2020-11-21 03:07 | disposition home or self-care (01) ==
LOC: ER 20:45
DX: R10.813 Right lower quadrant abdominal tenderness (principal); I10 Essential (primary) hypertension
CPT/HCPCS: 96361; 85025; 80048; 36415; 80076; 81003; 83690; 74177; 96374; 99284; Q9967; J7030; J2405